=== PATIENT | female | born 1940 | race Caucasian/White ===

== ENCOUNTER 2021-03-29 00:07 | Emergency (ER) | payer MEDICARE, BC ==
[2021-03-29] MEDS: cloNIDine 0.1 MG Tab PO ONE (02:09)
[2021-03-29] MEDS: Albuterol 0.083% 2.5 MG/3 ML Neb Soln NEB ONE (02:09)
[2021-03-29] MEDS: traMADol 50 MG Tab PO ONE (02:09)
[2021-03-29] MEDS: Furosemide 20 MG Tab PO ONE (02:09)
[2021-03-29] MEDS: Morphine 2 MG/ML SYRINGE IVPUSH ONE (03:16)
[2021-03-29] MEDS: Ondansetron 4 MG/2 ML SDV IVPUSH ONE (03:16)
[2021-03-29] MEDS: Labetalol 20 MG/4 ML Syringe IVPUSH ONE (03:16)
[2021-03-29] MEDS: Morphine 10 MG/ML SDV IM ONE (03:31)
[2021-03-29] MEDS: Ondansetron 4 MG/2 ML SDV IM ONE (06:34)
[2021-03-29] MEDS: Morphine 4 MG/ML VIAL IVPUSH ONE (06:38)
--- NOTE | 2021-03-29 06:45 | EDM.PDOC ---
ED HPI GENERAL MEDICAL PROBLEM - General Chief Complaint: General Stated Complaint: FELL Time Seen by Provider: 03/29/21 00:30 Source of Information: Reports: Patient History Limitations: Reports: No Limitations - History of Present Illness INITIAL COMMENTS - FREE TEXT/NARRATIVE: Ellie arrived by private vehicle after she fell and hit had door edge at home. No LOC. She complains of facial injury ad pain. Denies any neck pain. 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 left side of face Pain Score (Numeric/FACES): 7 left shoulder/wrist Pain Score (Numeric/FACES): 4 - Related Data Allergies Allergy/AdvReac Type Severity Reaction Status Date / Time diltiazem [From Cardizem] Allergy Itching Verified 03/29/21 00:26 Home Meds: Home Meds Aspirin 81 mg PO DAILY 03/29/21 [History] Furosemide 40 mg PO DAILY 03/29/21 [History] Losartan [Cozaar] 25 mg PO DAILY 03/29/21 [History] Metoprolol Succinate 50 mg PO DAILY 03/29/21 [History] Rosuvastatin [Crestor] 10 mg PO DAILY 03/29/21 [History] Warfarin Sodium [Jantoven] 0.5 - 1 tab PO DAILY 03/29/21 [History] Past Medical History Cardiovascular History: Reports: Afib, Heart Failure, Heart Valve Replacement 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 double bypass GI Surgical History: Reports: Cholecystectomy Female Surgical History: Reports: Hysterectomy Social & Family History - Family History Family Medical History: No Pertinent Family History - Tobacco Use Tobacco Use Status *Q: Never Tobacco User Second Hand Smoke Exposure: No ED ROS GENERAL - Review of Systems Review Of Systems: Comprehensive ROS is negative, except as noted in HPI. ED EXAM, GENERAL - Physical Exam Exam: See Below Exam Limited By: No Limitations General Appearance: Alert, No Apparent Distress Ears: Normal External Exam Ear Exam: Bilateral Ear: Auricle Normal, Canal Normal, TM normal Nose: Nasal Tenderness, Nasal Swelling Throat/Mouth: Normal Inspection Head: Facial Swelling, Facial Tenderness, Sinus Tenderness Neck: Normal Inspection, Supple, Non-Tender, Full Range of Motion Respiratory/Chest: No Respiratory Distress, Rhonchi, Wheezing Neurological: Alert, CN II-XII Intact Psychiatric: Normal Affect Skin Exam: Warm Course - Vital Signs Last Recorded V/S: Last Vital Signs Temp 98.2 F 03/29/21 00:07 Pulse 69 03/29/21 01:59 Resp 18 03/29/21 00:07 BP 212/102 H 03/29/21 02:09 Pulse Ox 96 03/29/21 01:59 - Orders/Labs/Meds Orders: Active Orders 24 hr Category Date Time Status RT Aerosol Therapy [RC] ASDIRECTED Care 03/29/21 01:59 Active Chest 1V Frontal [CR] Stat Exams 03/29/21 01:21 Taken Head wo Cont [CT] Stat Exams 03/29/21 00:13 Taken Max Facial Sinus wo Cont [CT] Stat Exams 03/29/21 00:33 Taken Shoulder 1V Lt [CR] Stat Exams 03/29/21 00:15 Taken Wrist Comp Min 3V Lt [CR] Stat Exams 03/29/21 00:15 Taken Sodium Chloride 0.9% [Saline Flush] Med 03/29/21 02:59 Active 10 ml FLUSH ASDIRECTED PRN Saline Lock Insert [OM.PC] Routine Oth 03/29/21 02:59 Ordered Medication Orders Sodium Chloride (Sodium Chloride 0.9% 10 Ml Syringe) 10 ml FLUSH ASDIRECTED PRN PRN Reason: Keep Vein Open Labs: Laboratory Tests 03/29/21 Range/Units 00:30 PT 30.0 H (9.0-11.1) sec INR 2.99 H (1.00-1.24) Meds: Medications Generic Name Dose Route Start Last Admin Trade Name Freq PRN Reason Stop Dose Admin Sodium Chloride 10 ml 03/29/21 02:59 Sodium Chloride 0.9% 10 Ml Syringe FLUSH ASDIRECTED PRN Keep Vein Open Discontinued Medications Generic Name Dose Route Start Last Admin Trade Name Freq PRN Reason Stop Dose Admin Albuterol 2.5 mg 03/29/21 01:59 03/29/21 02:09 Albuterol 0.083% 2.5 Mg/3 Ml Neb Soln NEB 03/29/21 02:00 2.5 mg ONETIME ONE Administration Clonidine HCl 0.1 mg 03/29/21 01:59 03/29/21 02:09 Clonidine 0.1 Mg Tab PO 03/29/21 02:00 0.1 mg ONETIME ONE Administration Furosemide 20 mg 03/29/21 01:59 03/29/21 02:09 Furosemide 20 Mg Tab PO 03/29/21 02:00 20 mg ONETIME ONE Administration Labetalol HCl 10 mg 03/29/21 03:00 03/29/21 03:16 Labetalol 20 Mg/4 Ml Syringe IVPUSH 03/29/21 03:01 10 mg ONETIME ONE Administration Protocol Morphine Sulfate 10 mg 03/29/21 02:53 03/29/21 03:31 Morphine 10 Mg/Ml Sdv IM 03/29/21 02:54 Not Given ONETIME ONE Morphine Sulfate 2 mg 03/29/21 02:59 03/29/21 03:16 Morphine 2 Mg/Ml Syringe IVPUSH 03/29/21 03:00 2 mg ONETIME ONE Administration Morphine Sulfate 4 mg 03/29/21 06:32 03/29/21 06:38 Morphine 4 Mg/Ml Vial IVPUSH 03/29/21 06:33 4 mg ONETIME ONE Administration Ondansetron HCl 4 mg 03/29/21 02:53 03/29/21 06:34 Ondansetron 4 Mg/2 Ml Sdv IM 03/29/21 02:54 Not Given ONETIME ONE Ondansetron HCl 4 mg 03/29/21 03:00 03/29/21 03:16 Ondansetron 4 Mg/2 Ml Sdv IVPUSH 03/29/21 03:01 4 mg ONETIME ONE Administration Tramadol HCl 50 mg 03/29/21 01:58 03/29/21 02:09 Tramadol 50 Mg Tab PO 03/29/21 01:59 50 mg ONETIME ONE Administration Departure - Departure Time of Disposition: 06:47 Disposition: Home, Self-Care 01 Condition: Good Clinical Impression: Facial injury - Discharge Information Referrals: Abdulaziz Lewis MD [Primary Care Provider] - Sepsis Event Note (ED) - Evaluation Sepsis Screening Result: No Definite Risk - Focused Exam Vital Signs: Vital Signs Temp Pulse Resp BP BP Pulse Ox Pulse Ox 03/29/21 02:09 212/102 H 03/29/21 01:59 69 96 03/29/21 00:07 98.2 F 72 18 234/97 H 96 - Problem List & Annotations (1) Facial injury SNOMED Code(s): 350671223 Code(s): S09.93XA - UNSPECIFIED INJURY OF FACE, INITIAL ENCOUNTER Status: Acute Current Visit: Yes Qualifiers: Encounter type: initial encounter Qualified Code(s): S09.93XA - Unspecified injury of face, initial encounter (2) HTN (hypertension) SNOMED Code(s): 39379763 Code(s): I10 - ESSENTIAL (PRIMARY) HYPERTENSION Status: Acute Current Visit: Yes (3) MCFP (current) use of anticoagulants SNOMED Code(s): 488355979 Code(s): Z79.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 Status: Acute Current Visit: Yes (4) CHF (congestive heart failure) SNOMED Code(s): 89253499 Code(s): I50.9 - HEART FAILURE, UNSPECIFIED Status: Acute Current Visit: Yes - Problem List Review Problem List Initiated/Reviewed/Updated: Yes - My Orders Last 24 Hours: My Active Orders 03/29/21 00:13 Head wo Cont [CT] Stat 03/29/21 00:15 Shoulder 1V Lt [CR] Stat Wrist Comp Min 3V Lt [CR] Stat 03/29/21 00:33 Max Facial Sinus wo Cont [CT] Stat 03/29/21 01:21 Chest 1V Frontal [CR] Stat 03/29/21 01:59 RT Aerosol Therapy [RC] ASDIRECTED 03/29/21 02:59 Sodium Chloride 0.9% [Saline Flush] 10 ml FLUSH ASDIRECTED PRN Saline Lock Insert [OM.PC] Routine - Assessment/Plan Last 24 Hours: My Active Orders 03/29/21 00:13 Head wo Cont [CT] Stat 03/29/21 00:15 Shoulder 1V Lt [CR] Stat Wrist Comp Min 3V Lt [CR] Stat 03/29/21 00:33 Max Facial Sinus wo Cont [CT] Stat 03/29/21 01:21 Chest 1V Frontal [CR] Stat 03/29/21 01:59 RT Aerosol Therapy [RC] ASDIRECTED 03/29/21 02:59 Sodium Chloride 0.9% [Saline Flush] 10 ml FLUSH ASDIRECTED PRN Saline Lock Insert [OM.PC] Routine Plan: CT head showed subcutaneous hematoma on the face,left,w/o fracture. CXR reveled mild cardiomegaly,mild pulmonary [id number]. Her BP was on the 200's on arrival. I initially gave her Clonidine,then obtained IV access and gave her IV Labetalol,Morphine ad that seemed to help. Will DC home on [address].
[2021-03-29] MEDS: Metoclopramide 10 MG/2 ML SDV IVPUSH STA (08:45)
[2021-03-29] MEDS: Sodium Chloride 0.9% 10 ML Syringe FLUSH PRN (08:46)
[2021-03-29] MEDS: Ondansetron 4 MG/2 ML SDV IVPUSH STA (08:46)
== END 2021-03-29 10:08 | disposition home or self-care (01) ==
LOC: FB.ED 00:07
DX: S09.93XA Unspecified injury of face, initial encounter (principal); I48.91 Unspecified atrial fibrillation; I50.9 Heart failure, unspecified; E66.9 Obesity, unspecified; Z68.30 Body mass index [BMI] 30.0-30.9, adult; Z79.82 Long term (current) use of aspirin; Z88.8 Allergy status to other drugs, medicaments and biological substances; Z79.01 Long term (current) use of anticoagulants; Z79.899 Other long term (current) drug therapy; W18.09XA Striking against other object with subsequent fall, initial encounter; Y92.009 Unspecified place in unspecified non-institutional (private) residence as the place of occurrence of the external cause
CPT/HCPCS: 36415; 70450; 70486; 71045; 73020; 73110; 85610; 94640; 96374; 96375; 96376; 99284; A9270; J2270; J2405; J2765; J3490

== ENCOUNTER 2024-01-26 16:19 | Emergency (ER) | payer BC, MEDICARE ==
[2024-01-26 16:38] LABS: BASOPHILS PERCENT AUTO 0.4 % (0.2-1.5); EOSINOPHILS ABSOLUTE AUTO 0.1 x10-3/uL (0.0-0.8); EOSINOPHILS PERCENT AUTO 1.5 % (0.6-8.1); HEMATOCRIT 37.4 % (34.2-48.2); HEMOGLOBIN 12.2 g/dL (11.4-15.5); LYMPHOCYTES ABSOLUTE AUTO 2.2 x10-3/uL (1.0-4.4); LYMPHOCYTES PERCENT AUTO 29.8 % (18.4-52.1); MEAN CORPUSCULAR HEMOGLOBIN 29.9 pg (23.9-33.9); MEAN CORPUSCULAR HGB CONC 32.6 g/dL (31.9-34.8); MEAN CORPUSCULAR VOLUME 91.8 fL (76.7-100.5); MEAN PLATELET VOLUME 10.6 fL (7.1-12.4); MONOCYTES ABSOLUTE AUTO 0.5 x10-3/uL (0.3-1.0); MONOCYTES PERCENT AUTO 6.5 % (4.4-15.7); NEUTROPHILS ABSOLUTE AUTO 4.6 x10-3/uL (1.5-6.3); NEUTROPHILS PERCENT AUTO 61.8 % (30.8-76.2); PLATELET COUNT,PLT 147 x10(3)uL (151-488); RED BLOOD CELL COUNT 4.07 x10(6)uL (3.60-5.20); RED CELL DISTRIBUTION WIDTH 14.9 % (12.3-16.5); WHITE BLOOD CELL COUNT,WBC 7.5 x10-3/uL (3.0-10.3)
[2024-01-26 16:41] LABS: BLOOD UREA NITROGEN,BUN 18 mg/dL (7-18); BUN/CREATININE RATIO 13.8 (9-20); CARBON DIOXIDE,CO2 28 mmol/L (21-32); CHLORIDE,CL 105 mmol/L (100-110); CREATININE 1.3 mg/dL (0.55-1.02); ESTIMATED GFR 41 mL/min (>60); GLUCOSE RANDOM 98 mg/dL (80-116); POTASSIUM,K 3.5 mmol/L (3.5-5.3); SODIUM,NA 142 mmol/L (135-145)
[2024-01-26 16:47] LABS: A/G RATIO 0.9; ALANINE AMINOTRANSFERASE,ALT 21 U/L (12-36); ALBUMIN 3.7 g/dL (3.2-4.6); ALKALINE PHOSPHATASE 84 IU/L (56-112); ASPARTATE AMNIOTRANSFERASE,AST 21 IU/L (5-25); BILIRUBIN TOTAL 0.5 mg/dL (0.1-1.3); INR 2.13 (1.00-1.24); PROTEIN TOTAL,TP 7.7 g/dL (6.0-8.0); PROTHROMBIN TIME 20.8 sec (9.0-11.1); PTT,PARTIAL THROMBOPLSTIN TIME 33.9 SECONDS (24.4-33.2)
[2024-01-26 17:05] LABS: LACTIC ACID 1.1 mmol/L (0.4-2.0)
[2024-01-26 17:07] LABS: TROPONIN I 18.2 pg/mL (4.0-60.3)
== END 2024-01-26 19:42 | disposition home or self-care (01) ==
LOC: FB.ED 16:19
DX: I50.9 Heart failure, unspecified (principal); I48.91 Unspecified atrial fibrillation; E66.9 Obesity, unspecified; Z90.49 Acquired absence of other specified parts of digestive tract; Z90.710 Acquired absence of both cervix and uterus; Z79.01 Long term (current) use of anticoagulants; Z79.899 Other long term (current) drug therapy; Z88.8 Allergy status to other drugs, medicaments and biological substances
CPT/HCPCS: 36415; 71045; 80053; 83605; 83735; 83880; 84484; 85025; 85379; 85610; 85730; 86140; 93005; 99285

== ENCOUNTER 2025-01-08 19:47 | Emergency (ER) | payer MEDICARE ==
[2025-01-08 20:09] LABS: APPEARANCE,URINE SLIGHTLY CLOUDY (CLEAR); GLUCOSE,URINE NORMAL (NORMAL); OCCULT BLOOD,URINE TRACE (NEGATIVE)
[2025-01-08 20:15] LABS: SQUAMOUS EPITHELIAL CELLS,UR FEW (NS,R,O)
== END 2025-01-08 20:30 | disposition home or self-care (01) ==
LOC: SUPCPDRO 19:47 → FB.ED 19:47
DX: N39.0 Urinary tract infection, site not specified (principal); I48.91 Unspecified atrial fibrillation; I50.9 Heart failure, unspecified; Z88.0 Allergy status to penicillin; Z79.01 Long term (current) use of anticoagulants; Z79.899 Other long term (current) drug therapy
CPT/HCPCS: 81001; 87086; 99283; 99284